=== PATIENT | female | born 1955 | race Caucasian/White ===

== ENCOUNTER 2018-11-05 09:13 | Emergency (ER) | payer BC, OTHER ==
[2018-11-05 10:34] VITALS: BP 138/57
--- NOTE | 2018-11-05 11:01 | UC ---
UC General HPI - HPI Summary HPI Summary: fever, fatigue and sore throat x 3 days. thinks sore throat from dry mouth from sleeping with mouth open. no sob. denies hx asthma, copd and DM. - History of Current Complaint Chief Complaint: UCGeneralIllness Stated Complaint: FEVER Time Seen by Provider: 11/05/18 10:51 Hx Obtained From: Patient Onset/Duration: Gradual Onset Timing: Constant Pain Intensity: 0 Associated Signs & Symptoms: Positive: Fever. Negative: Cough, Chest Pain, Diarrhea, SOB, Vomiting - Allergy/Home Medications Allergies/Adverse Reactions: Allergies Allergy/AdvReac Type Severity Reaction Status Date / Time bupropion [From Wellbutrin] Allergy Hives Verified 11/05/18 10:35 Penicillins Allergy Hives Verified 11/05/18 10:35 Sulfa (Sulfonamide Allergy Hives Verified 11/05/18 10:35 Antibiotics) Home Medications: Home Medications Ibuprofen 400 mg PO 11/05/18 [History] PMH/Surg Hx/FS Hx/Imm Hx - Additional Past Medical History Additional PMH: Tremor - Surgical History Surgical History: Yes Surgery Procedure, Year, and Place: tonsillectomy, cholecystectomy, cynthia mastectomy - breast ca - Social History Alcohol Use: Rare Substance Use Type: None Smoking Status (MU): Former Smoker Type: Cigarettes Amount Used/How Often: 6-8 cigs daily Household Exposure Type: Cigarettes - Immunization History Most Recent Influenza Vaccination: jun 2014 Vaccination Up to Date: Yes Review of Systems All Other Systems Reviewed And Are Negative: Yes Constitutional: Positive: Fever, Fatigue Skin: Positive: Negative Eyes: Positive: Negative ENT: Positive: Sore Throat Respiratory: Positive: Negative Cardiovascular: Positive: Negative Gastrointestinal: Positive: Negative Genitourinary: Positive: Negative Motor: Positive: Negative Neurovascular: Positive: Negative Musculoskeletal: Positive: Negative Neurological: Positive: Negative Psychological: Positive: Negative Is Patient Immunocompromised?: No Physical Exam Triage Information Reviewed: Yes Appearance: Well-Appearing Vital Signs: Initial Vital Signs Temp 100.5 F 11/05/18 10:30 Pulse 71 11/05/18 10:30 Resp 18 11/05/18 10:30 BP 138/57 11/05/18 10:30 Pulse Ox 93 11/05/18 10:30 Vital Signs Reviewed: Yes Eyes: Positive: Conjunctiva Clear ENT: Positive: Pharyngeal erythema - with thick white plaques c/w trush. dentures in place., TMs normal. Negative: Nasal congestion, Nasal drainage Neck: Positive: Supple, Nontender, No Lymphadenopathy Respiratory: Positive: Lungs clear, Normal breath sounds, No respiratory distress Cardiovascular: Positive: RRR, No Murmur Abdomen Description: Positive: Nontender, No Organomegaly, Soft Bowel Sounds: Positive: Present Musculoskeletal: Positive: ROM Intact Neurological: Positive: Alert, Other: - Tremor to hands Psychological: Positive: Normal Response To Family, Age Appropriate Behavior Skin Exam: Normal Diagnostics - Laboratory Diagnostic Studies Completed/Ordered: rapid strep=neg rapid flu=neg Course/Dx - Course Course Of Treatment: non toxic pt. rapid strep and flu negative. no indication for antibiotic for bacterial infection. - Differential Dx - Multi-Symptom Differential Diagnoses: Other - viral syndom, influenza, pharyngitis - Diagnoses Provider Diagnosis: Thrush, oral, Viral syndrome Discharge - Sign-Out/Discharge Documenting (check all that apply): Patient Departure All imaging exams completed and their final reports reviewed: No Studies - Discharge Plan Condition: Stable Disposition: HOME Prescriptions: Nystatin SUSPENSION* 500,000 units PO QID 14 Days [id number] Patient Education Materials: Oral Candidiasis (ED), Viral Syndrome (ED) Referrals: Sulma Crump NP [Primary Care Provider] - 5 Days Additional Instructions: recheck with primary care wihthin 5 days or sooner for any worsening. - Billing Disposition and Condition Condition: STABLE Disposition: Home
[2018-11-05 11:24] LABS: Influenza A Molecular NEGATIVE (Negative); Influenza B Molecular NEGATIVE (Negative)
== END 2018-11-05 11:38 | disposition home or self-care (01) ==
LOC: UCCORT 09:13
DX: B37.0 Candidal stomatitis (principal); M34.9 Systemic sclerosis, unspecified; R53.83 Other fatigue; J02.9 Acute pharyngitis, unspecified; Z88.8 Allergy status to other drugs, medicaments and biological substances; Z88.0 Allergy status to penicillin; Z88.2 Allergy status to sulfonamides; Z87.891 Personal history of nicotine dependence
CPT/HCPCS: 87651; 99212; G0463

== ENCOUNTER 2019-04-05 12:35 | Emergency (ER) | payer BC ==
[2019-04-05 13:37] VITALS: BP 140/87
--- NOTE | 2019-04-05 14:25 | UC ---
Respiratory Complaint HPI - HPI Summary HPI Summary: 3 DAYS OF DRY COUGH AND SLIGHT CONGESTION. NO FEVER, NAUSEA/VOMITING. IS ANXIOUS SHE HAD LEGIONNAIRES 5 MONTHS AGO. - History of Current Complaint Chief Complaint: UCRespiratory Stated Complaint: COUGH,SORE THROAT,EARS Time Seen by Provider: 04/05/19 13:38 Hx Obtained From: Patient Onset/Duration: Gradual Onset, Lasting Days, Still Present Timing: Constant Severity Initially: Moderate Severity Currently: Moderate Pain Intensity: 0 Pain Scale Used: 0-10 Numeric Character: Cough: Nonproductive Aggravating Factors: Nothing Alleviating Factors: Nothing Associated Signs And Symptoms: Positive: URI, Nasal Congestion. Negative: Dyspnea, Fever, Chills, Wheezing - Allergies/Home Medications Allergies/Adverse Reactions: Allergies Allergy/AdvReac Type Severity Reaction Status Date / Time bupropion [From Wellbutrin] Allergy Hives Verified 04/05/19 13:31 Penicillins Allergy Hives Verified 04/05/19 13:31 Sulfa (Sulfonamide Allergy Hives Verified 04/05/19 13:31 Antibiotics) PMH/Surg Hx/FS Hx/Imm Hx Respiratory History: Asthma Cancer History: Breast Cancer - Surgical History Surgical History: Yes Surgery Procedure, Year, and Place: tonsillectomy, cholecystectomy, cynthia mastectomy - breast ca , hysterectomy - Family History Known Family History: Positive: Non-Contributory - Social History Alcohol Use: Rare Substance Use Type: None Smoking Status (MU): Former Smoker Type: Cigarettes Amount Used/How Often: 6-8 cigs daily Household Exposure Type: Cigarettes - Immunization History Most Recent Influenza Vaccination: jun 2014 Vaccination Up to Date: Yes Review of Systems All Other Systems Reviewed And Are Negative: Yes Constitutional: Positive: Negative ENT: Positive: Sore Throat, Nasal Discharge Respiratory: Positive: Cough Cardiovascular: Positive: Negative Gastrointestinal: Positive: Negative Physical Exam Triage Information Reviewed: Yes Appearance: Well-Appearing, No Pain Distress, Well-Nourished Vital Signs: Initial Vital Signs Temp 99.3 F 04/05/19 13:32 Pulse 98 04/05/19 13:32 Resp 20 04/05/19 13:32 BP 140/87 04/05/19 13:32 Pulse Ox 96 04/05/19 13:32 Vital Signs Reviewed: Yes Eyes: Positive: Conjunctiva Clear ENT: Positive: Hearing grossly normal, Pharyngeal erythema, TMs normal, Hoarse voice Neck: Positive: Supple, Nontender, No Lymphadenopathy Respiratory Exam: Normal Cardiovascular Exam: Normal Abdomen Description: Positive: Soft Musculoskeletal: Positive: No Edema Neurological: Positive: Alert Psychological: Positive: Age Appropriate Behavior Skin: Negative: Rashes Respiratory Course/Dx - Course Course Of Treatment: LIKELY VIRAL ETIOLOGY OF SYMPTOMS. THIS EARLY IN THE COURSE OF ILLNESS NO INDICATION FOR ANTIBIOTICS. NORMAL EXAM TODAY. PATIENT IS NERVOUS GIVEN HER HISTORY OF LEGIONNAIRE'S EARLIER THIS YEAR. DISCUSSED WITH PATIENT THAT WE COULD ORDER A CHEST X-RAY AND GIVE EMPIRIC ANTIBIOTICS JUST BASED ON HER CONCERN HOWEVER SHE DECLINES THIS TREATMENT TODAY WHICH I THINK IS ENTIRELY REASONABLE. SHE IS OKAY WITH TREATING HER ASTHMA SYMPTOMS WITH HER INHALER AND A SHORT COURSE OF STEROIDS WITH CAREFUL OBSERVATION AT HOME AND FOLLOW-UP IF HER SYMPTOMS WORSEN. - Differential Dx/Diagnosis Provider Diagnosis: Acute bronchitis Discharge - Sign-Out/Discharge Documenting (check all that apply): Patient Departure All imaging exams completed and their final reports reviewed: No Studies - Discharge Plan Condition: Stable Disposition: HOME Prescriptions: Hydrocodone/Chlorphen P-Stirex [Hydrocodone-Chlorphen ER Susp] 5 ml PO BID PRN # 120 ml MDD 10ml PRN Reason: Cough predniSONE TAB* [Deltasone 20 MG TAB*] 40 mg PO DAILY #10 tab Patient Education Materials: Acute Bronchitis (ED) Referrals: Sulma Crump NP [Primary Care Provider] - 1 Week Additional Instructions: YOUR SYMPTOMS ARE LIKELY VIRALLY MEDIATED AND SHOULD RESOLVE ON THEIR OWN WITH TIME. NO INDICATION FOR ANTIBIOTICS AT PRESENT. REST, HYDRATE, OTC MEDS NEEDED. WILL TREAT WITH PREDNISONE TO HELP WITH AIRWAY INFLAMMATION AND COUGH MEDICINE. SEEK FOLLOW-UP IF YOU ARE NOT IMPROVING OVER THE NEXT 1-2 WEEKS. - Billing Disposition and Condition Condition: STABLE Disposition: Home
== END 2019-04-05 14:23 | disposition home or self-care (01) ==
LOC: UCCORT 12:35
DX: J20.9 Acute bronchitis, unspecified (principal); J45.909 Unspecified asthma, uncomplicated; Z87.891 Personal history of nicotine dependence; Z85.3 Personal history of malignant neoplasm of breast
CPT/HCPCS: 99212; G0463